=== PATIENT | female | born 1965 | race Caucasian/White ===

== ENCOUNTER 2018-11-10 09:49 | Day surgery (SDC) | payer OTHER | END 2018-11-10 17:20 | disposition home or self-care (01) | LOC: AMB-ENDOS 09:49 | DX: D12.4 Benign neoplasm of descending colon (principal); K64.1 Second degree hemorrhoids ==

== ENCOUNTER 2021-10-07 07:27 | Outpatient (CLI) | payer OTHER | END 2021-10-07 07:28 | disposition home or self-care (01) | LOC: LAB 07:27 | PROVIDERS: ATTEND Colon & Rectal Surgery | DX: Z03.818 Encounter for observation for suspected exposure to other biological agents ruled out (principal) ==

== ENCOUNTER 2021-10-07 07:44 | Day surgery (SDC) | payer OTHER | END 2021-10-07 13:05 | disposition home or self-care (01) | LOC: AMB-ENDOS 07:44 | PROVIDERS: ATTEND Colon & Rectal Surgery | DX: D12.3 Benign neoplasm of transverse colon (principal); D12.7 Benign neoplasm of rectosigmoid junction; Z86.010 Personal history of colon polyps; Z20.822 Contact with and (suspected) exposure to COVID-19 ==

== ENCOUNTER 2024-03-08 12:21 | Outpatient (CLI) | payer OTHER | END 2024-03-08 12:24 | disposition home or self-care (01) | LOC: SONOGRAMA 12:21 | PROVIDERS: ATTEND Pathology Anatomic Pathology | DX: D34 Benign neoplasm of thyroid gland (principal); E07.89 Other specified disorders of thyroid; E04.8 Other specified nontoxic goiter ==